=== PATIENT | female | born 1960 | race Caucasian/White ===

== ENCOUNTER 2023-10-20 10:54 | Emergency (ER) | payer OTHER, SELFPAY ==
[2023-10-20 11:02] VITALS: BP 159/100
[2023-10-20 11:08] VITALS: BMI 55.6
[2023-10-20 11:18] LABS: % Basophils 0.7 % (0-2); % Eosinophils 1.3 % (0-6); % Immature Granulocytes 0.5 % (0-0.5); % Lymphocytes 13.6 % (20.5-51.1); % Monocytes 5.9 % (1.7-9.3); Absolute Basophils 0.1 10^3/uL (0-0.2); Absolute Eosinophils 0.2 10^3/uL (0-0.7); Absolute Immature Granulocytes 0.1 10^3/uL (0-0.05); Absolute Monocytes 0.9 10^3/uL (0.1-0.6); Absolute Neutrophils 11.3 10^3/uL (1.4-6.5); Hematocrit 42.5 % (37.0-47.0); Hemoglobin 14.4 g/dL (12.0-16.0); Mean Corp Hgb Conc. 33.9 g/dL (33.0-37.0); Mean Corpuscular Hgb 28.7 pg (27.0-31.0); Mean Corpuscular Volume 84.7 fL (81.0-99.0); Mean Platelet Volume 8.9 fL (7.4-10.4); Nucleated Red Blood Cells % 0 %; Platelet Count 269 10^3/uL (130-400); Red Blood Cell Count 5.02 10^6/uL (4.20-5.40); White Blood Cell Count 14.5 10^3/uL (4.8-10.8)
[2023-10-20 11:29] LABS: ALT (SGPT) 25 U/L (0-35); AST (SGOT) 27 U/L (14-36); Albumin 4.1 g/dl (3.5-5.0); Alkaline Phosphatase 114 U/L (38-126); Blood Urea Nitrogen 16 mg/dl (7-17); Calcium 9.1 mg/dl (8.4-10.2); Carbon Dioxide 33 mmol/L (22-30); Chloride 98 mmol/L (98-107); Estimated Creatinine Clearance 109 ml/min; Glucose 120 mg/dl (70-99); Potassium 3.9 mmol/L (3.5-5.1); Sodium 140 mmol/L (135-145); Total Bilirubin 0.5 mg/dl (0.2-1.3); eGFR > 60.00
[2023-10-20 11:40] LABS: Troponin I < 0.012 ng/ml
--- NOTE | 2023-10-20 12:07 | ED.GENMED ---
History of Present Illness
General
Chief Complaint: Chest Pain
Source: patient, records and spouse
Exam Limitations: none
Time Seen by Provider: 10/20/23 11:12
Nursing documentation reviewed up to this point in time: agreed with
History of Present Illness
History of Present Illness:
63-year-old female with a past medical history of hypertension, hyperlipidemia, atrial fibrillation on Xarelto, frb-ewantdt-ruuzgrwuk diabetes who presents to the emergency department for evaluation of chest pain. Patient reports onset of symptoms
this morning shortly after she woke up around 6 AM. She says that symptoms were transient and resolved after belching but since then symptoms have been waxing and waning. 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
while at work this morning, disclosed to the physician there who referred to the ER for assessment. She was given 4 chewable baby aspirin prior to arrival, she also received 1 sublingual nitroglycerin from EMS due to severe hypertension�was
apparently hypertensive to over 200 on EMS arrival. Currently chest pain-free but she says symptoms are waxing waning�she describes vague substernal aching sensation that occasionally becomes sharper particular with inspiration. She says she has
had associated increased belching today. She has not had any nausea or vomiting. She denies any shortness of breath although again occasionally pain will become sharper with inspiration. She denies any recent illness�denies coughing, fevers,
chills. She has not noticed any swelling or pain in the legs--only describes occasional pain from arthritis in her knees which is unchanged. She says she has not had similar symptoms in the past. She does have a known history of A-fib and follows
with Dr. Terry Kingston for cardiology. Reports past surgical history of cholecystectomy.
Past History
Past History
ED Past Medical History: Arrthythmia, HTN, Hypercholesterolemia and Other (Diverticulosis, arthritis)
ED Past Surgical History: Cardiac (Ablation), Cholecystectomy and Orthopedic
Social History
Tobacco: Non-smoker
Alcohol: None
Drug: None
Personal:
Living: with family
Employment: Employed
Family History
Family History: Other (Noncontributory)
Review of Systems
Review of Systems
All Other Systems: ROS reviewed and negative except as documented in HPI and ROS
Constitutional: Denies fever or chills
Respiratory: Denies cough or trouble breathing
Cardiac: Reports chest pain; Denies palpitations
ABD/GI: Reports other (Belching); Denies abdominal pain, nausea or vomiting
: Denies flank pain
Musculoskeletal: Denies edema, neck pain or back pain
Neurological: Denies dizzy or headache
Phy Exam
Physical Exam
Physical Exam:
General: Awake, alert, oriented x3; no acute distress
Head: Normocephalic, atraumatic
Eyes: Conjunctiva normal, sclera anicteric
Throat: Airway intact, handling secretions
Neck: Trachea midline, supple without meningismus
Lungs: Clear to auscultation bilaterally, no wheezing, rales, rhonchi
Heart: Regular rate and rhythm, faint systolic murmur
Abd: Soft, non distended, nontender
Neuro: No gross deficits
Extremities: No edema in extremities, no calf tenderness, equal pulses in all extremities
Scores
Heart Failure Risk
Heart Failure Risk Score: Not Applicable
Heart Score for Chest Pain Patients
STEMI patient?: No
History: Slightly or Non-Suspicious
ECG: Normal
Age: >45 - <65 years
Risk Factors: >/= 3 Risk Factors or History of CAD
Troponin: </= Normal Limit
Heart Score for Chest Pain Patients: 3
Heart Score Risk: 2.5% MACE over next 6 weeks
PE Wells Score
Symptoms of DVT: No
No alternative diagnosis better explains the illness: No
Tachycardia with pulse > 100: No
Immobilization (>=3 days) or surgery within previous 4 weeks: No
Prior history of DVT or pulmonary embolism: No
Presence of hemoptysis: No
Presence of malignancy: No
Pulmonary Embolism Risk Score: 0
Probability of PE: Pt is low risk
Withdrawal Assessment of Alcohol
Withdrawal Assessment Completed?: Not applicable
Course
Orders/Labs/Results
Orders:
Orders
10/20/23 10:58
Electrocardiogram (*1) Urgent
Reason for Study: Chest Pain
10/20/23 10:59
EKG- Treatment ONCE
10/20/23 11:10
Complete Blood Count/With Diff Urgent
Comprehensive Metabolic Panel Urgent
Troponin I Urgent
10/20/23 11:16
CR Chest - 2 Views Urgent
Comment:
Reason For Exam: chest pain
10/20/23 12:05
D-Dimer Urgent
10/20/23 12:12
EKG [Electrocardiogram (*1)] Urgent
Reason for Study: Chest Pain
10/20/23 12:13
EKG- Treatment ONCE
10/20/23 12:18
Acetaminophen [Tylenol] 650 mg PO NOW STA
10/20/23 13:11
Troponin I Urgent
10/20/23 14:43
Mag Hydrox/Al Hydrox/Simeth [Maalox] 30 ml Phenobarb/Hyoscy/Atropine/Scop [] 10 ml Viscous Lidocaine 2% [Xylocaine Viscous Cup] 10 ml PO NOW
Pantoprazole [Protonix IV] 40 mg IV NOW STA
10/20/23 14:58
Mag Hydrox/Al Hydrox/Simeth [Maalox] 30 ml .ROUTE .STK-MED ONE
Phenobarb/Hyoscy/Atropine/Scop [] 10 ml .ROUTE .STK-MED ONE
Viscous Lidocaine 2% [Xylocaine Viscous Cup] 15 ml .ROUTE .STK-MED ONE
Abnormal Lab Results
10/20/23
11:10
WBC 14.5 H 10^3/uL
(4.8-10.8)
Abs Immat Gran (auto) 0.1 H 10^3/uL
(0-0.05)
Absolute Neuts (auto) 11.3 H 10^3/uL
(1.4-6.5)
Absolute Monos (auto) 0.9 H 10^3/uL
(0.1-0.6)
Neutrophils % 78.0 H %
(42.2-75.2)
Lymphocytes % 13.6 L %
(20.5-51.1)
Carbon Dioxide 33 H mmol/L
(22-30)
Glucose 120 H mg/dl
(70-99)
10/20/23 11:10
10/20/23 11:10
Vital Signs
Initial and Last Documented VS:
Initial Vital Signs
Pulse Resp Pulse Ox
70 20 98
10/20/23 11:00 10/20/23 11:00 10/20/23 11:00
Last Documented Vital Signs
Temp Pulse Resp BP Pulse Ox
36.8 C 67 20 177/98 94
10/20/23 11:14 10/20/23 15:30 10/20/23 15:30 10/20/23 15:00 10/20/23 15:30
MDM/Problems Addressed
Differential Diagnosis Includes:
GERD/dyspepsia, ACS, dysrhythmia/symptomatic A-fib, PE; low clinical suspicion for acute aortic syndrome despite her hypertension with waxing and waning symptoms including patient being completely asymptomatic on my assessment�in my judgment
medication for emergent angiogram at this point in time
MDM/Problems Addressed:
63-year-old female presents to the emergency room for evaluation of intermittent chest discomfort associated with increasing belching today. Hypertensive but otherwise normal vitals�she did receive sublingual nitroglycerin from EMS as well as 4
baby aspirin prior to hospital arrival. Physical exam as above. EKG shows no STEMI. Will place an IV check labs including a CBC and a CMP, lipase. Will check serial troponins. She does report the pain occasionally becomes sharp with deep
inspiration; she is on Xarelto making PE very unlikely but does have history of morbid obesity which slightly increases PE risk�will plan to check D-dimer. Check a chest x-ray. Will monitor on telemetry and reassess after the above.
Labs reviewed: CBC shows slight leukocytosis to 14.5 unclear clinical significance, CMP no clinically significant abnormalities. Troponin undetectable x 2. D-dimer negative. Chest x-ray shows no acute disease on independent review by me. Patient
treated with green grabber and Protonix here and feels symptoms have improved. 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 She has had some persistent
hypertension here�we spoke at length about monitoring at home, returning with severe hypertension and following up with PCP to discuss potential medication adjustments. Feels comfortable with this plan. All questions answered.
Chronic conditions affecting care:
Obesity, atrial fibrillation, hypertension, hyperlipidemia, diabetes
Acute Exacerbation and/or Progression of Chronic Illness:
Acutely hypertensive
Acute Exacerbation and/or Progression of Chronic Illness: HTN
*Radiology
Radiology exam reviewed: preliminary read by ED provider and radiology read reviewed
*Pulse Oximetry
Patient hypoxic: no
*EKG
Interpreted by ED Provider?: Yes
Comparison EKG: no changes
Heart Rate: 68
Rate: normal
Rhythm: sinus
Hoolehua: left axis deviation
Interval: normal interval
QRS Pattern: left vent hypertrophy
Ischemia: no ischemia
*Critical Care Note
Total Time (30-74mins, 75-104mins- exclusive of procedures): Not Applicable
Data Reviewed
Review of Other/Old Records Reveals: Labs and Records
Source: patient, records and spouse
ED Attending Note
-
Portions of this chart may have been created with voice recognition software.� Occasional wrong word or��sound alike� substitutions may have occurred due to the inherent limitations of voice recognition software.
Discharge Plan
Departure
Patient Disposition: Home (Routine Discharge)
Date of Disposition: 10/20/23
Time of Disposition: 16:13
Patient with high blood pressure during this ER visit?: Yes
Discharge Problem:
Chest pain, Hypertension
Instructions: Chest Pain DCA Follow Up, BLOOD PRESSURE
Prescriptions:
New
pantoprazole [Protonix] 40 mg tablet,delayed release (DR/EC)
40 mg PO DAILY Qty: 30 0RF
No Action
escitalopram oxalate 20 MG tablet
20 mg PO DAILY
rivaroxaban [Xarelto] 20 MG tablet
20 mg PO DAILY
sotalol 120 MG tablet
120 mg PO BID Qty: 60 11RF
lisinopril-hydrochlorothiazide 1 EACH tablet
1 ea PO BID
oxycodone-acetaminophen 5 MG/325 MG tablet
1 tab PO BIDPRN PRN (Reason: neck/back pain)
oxycodone-acetaminophen 5 MG/325 MG tablet
1 tab PO Q4HPRN PRN (Reason: Moderate pain) Qty: 12 0RF
sitagliptin phos-metformin [Janumet] 1 EACH tablet
1 ea PO DAILY
polyethylene glycol 3350 238 GM powder
238 gm PO ONCE
magnesium citrate [Citroma] 300 ML solution
300 ml PO ONCE
Referrals:
Bertha Peoples MD [Family Provider] -
Gregorio Kingston MD [Active] - Call in 1-3 days for appt
Activity Restrictions/Additional Instructions:
Thank you for visiting the Emergency Department at [facility].
1. Please schedule a follow up appointment as directed. Call first thing tomorrow morning to make an appointment.
2. If indicated, please take your medications as instructed and indicated on discharge paperwork.
3. If any of your symptoms do not improve, or persist, or become more severe within 6-12 hours, please return to the emergency department for further care.
4. Please return to the emergency department if you develop a headache, neck pain/stiffness, fever greater than 100.4F, chest pain, shortness of breath, persistent nausea, vomiting, slurred speech, difficulty walking, numbness/tingling, weakness,
signs of infection or any other symptoms that are worrisome to you.
Please call [phone] if you have any questions.
Interventions
Interventions:
*Risk Screen - Suicide Last Done: 10/20/23 11:06
*General Assessment Last Done: 10/20/23 11:06
*Neglect/Abuse Screening Last Done: 10/20/23 11:06
ED- Fall Risk Assessment Last Done: 10/20/23 12:09
*ED COVID-19 Vaccine History Last Done: 10/20/23 11:06
ED- Cardiac Assessment Last Done: 10/20/23 11:05
Discharge Date and Time
Print Language: THAI
[2023-10-20 12:18] VITALS: BP 146/70
[2023-10-20] MEDS: TYLENOL 650 MG PO (12:21)
[2023-10-20 13:00] VITALS: BP 176/85
[2023-10-20 13:26] LABS: D-Dimer < 0.27 ug/mlFEU (0.00-0.50)
[2023-10-20 13:45] LABS: Troponin I < 0.012 ng/ml
[2023-10-20 14:02] VITALS: BP 189/89
[2023-10-20 15:00] VITALS: BP 177/98
[2023-10-20] MEDS: MAALOX 50 PO (15:01)
[2023-10-20] MEDS: PROTONIX IV 40 MG IV (15:01)
[2023-10-20 15:55] VITALS: BP 174/89
== END 2023-10-20 16:48 | disposition home or self-care (01) ==
LOC: EMR 10:54
PROVIDERS: Emergency Medicine; EMERGENCY PHYSICIAN Emergency Medicine; FAMILY PHYSICIAN Family Medicine
DX: R07.89 Other chest pain (principal); I10 Essential (primary) hypertension; E78.00 Pure hypercholesterolemia, unspecified; I48.91 Unspecified atrial fibrillation; M17.0 Bilateral primary osteoarthritis of knee; E11.40 Type 2 diabetes mellitus with diabetic neuropathy, unspecified; E66.01 Morbid (severe) obesity due to excess calories; G47.30 Sleep apnea, unspecified; K57.90 Diverticulosis of intestine, part unspecified, without perforation or abscess without bleeding; F32.A Depression, unspecified; Z87.891 Personal history of nicotine dependence; Z79.01 Long term (current) use of anticoagulants; Z79.84 Long term (current) use of oral hypoglycemic drugs; Z90.49 Acquired absence of other specified parts of digestive tract
CPT/HCPCS: 99284; 96374; 71046; 80053; 84484; 85025; 85379; 93005

== ENCOUNTER → 2024-03-02 08:33 | Outpatient (REF) | payer OTHER, SELFPAY | LOC: RCS 08:33 | PROVIDERS: ATTENDING PHYSICIAN Internal Medicine Cardiovascular Disease; FAMILY PHYSICIAN Family Medicine | DX: I48.3 Typical atrial flutter (principal) | CPT/HCPCS: 93306 ==

== ENCOUNTER 2024-10-07 11:09 | Inpatient (IN) | payer OTHER, SELFPAY ==
[2024-10-07] VITALS (11 sets, daily range): BP systolic 113–148; BP diastolic 58–81; BMI 44.3; BMI 44.4
--- NOTE | 2024-10-07 08:51 | ED.GENMED ---
History of Present Illness
<Howie Salmeron PA-C - Last Filed: 10/07/24 12:34>
General
Chief Complaint: Abdominal Pain
Source: patient
Time Seen by Provider: 10/07/24 08:26
History of Present Illness
History of Present Illness:
64-year-old female with past medical history of atrial fibrillation, hypertension, hyperlipidemia, oqc-yikzvov-jkkbnytuw diabetes presenting to the emergency department for evaluation of periumbilical abdominal pain radiating to the right lower
quadrant since yesterday accompanied with nausea and vomiting last night, diminished p.o. intake to both solids and liquids and stating she has had a harder time having bowel movements as well. Patient did not attempt anything for pain prior to
arrival as she states she did not feel should be able to tolerate it. She denies any fevers, chills, rigors, urinary symptoms, chest pain, shortness of breath, back or flank pain. Patient notes a surgical history of previous cholecystectomy,
previous umbilical hernia and section. Social history noncontributory. Patient states pain is currently about a 7 out of 10 and is currently requesting something for pain as well as nausea.
Past History
<Howie Salmeron PA-C - Last Filed: 10/07/24 12:34>
Past History
ED Past Medical History: Arrthythmia, HTN, Hypercholesterolemia, NIDDM and Other (Diverticulosis, arthritis)
ED Past Surgical History: Cardiac (Ablation), Cholecystectomy and Orthopedic
Social History
Tobacco: Non-smoker
Alcohol: None
Drug: None
Personal:
Living: with family
Employment: Employed
Family History
Family History: Other (Noncontributory)
Review of Systems
<Howie Salmeron PA-C - Last Filed: 10/07/24 12:34>
Review of Systems
All Other Systems: ROS reviewed and negative except as documented in HPI and ROS
Phy Exam
<Howie Salmeron PA-C - Last Filed: 10/07/24 12:34>
Physical Exam
Physical Exam:
GENERAL: Alert , in no apparent distress but appears mildly uncomfortable
EYE: clear conjunctiva b/l
HEAD: NCAT
ENT: o/p clr, mmm.
CARDIAC: Regular rate and rhythm .
LUNGS: Clear breath sounds bilaterally, no acute respiratory distress, no wheezes/rales/rhonchi
ABDOMEN: Soft, small area of ecchymosis just proximal and lateral to the umbilicus with tenderness periumbilically and within the right lower quadrant with grimacing, no CVA tenderness, no rebound tenderness
NEUROLOGICAL: Alert and oriented
SKIN: Warm and dry, skin intact.
MUSCULOSKELETAL: No edema, well perfused.
PSYCH: Normal and appropriate interaction.
Scores
<Howie Salmeron PA-C - Last Filed: 10/07/24 12:34>
Heart Failure Risk
Heart Failure Risk Score: Not Applicable
Heart Score for Chest Pain Patients
STEMI patient?: Not applicable
Withdrawal Assessment of Alcohol
Withdrawal Assessment Completed?: Not applicable
Course
<Howie Salmeron PA-C - Last Filed: 10/07/24 12:34>
Orders/Labs/Results
Orders:
Orders
10/07/24 08:46
CT Abd/pelvis W Iv Cont Urgent
Comment:
Reason For Exam: periumbilical pain, RLQ pain, on xarelto
Morphine Sulfate 4 mg IV NOW STA
Ondansetron Injectable [Zofran] 4 mg IV NOW STA
10/07/24 09:15
Type+Screen Urgent
Complete Blood Count/With Diff Urgent
Comprehensive Metabolic Panel Urgent
Lipase Urgent
PTT Urgent
Prothrombin Time Urgent
Urinalysis Reflex To Culture Urgent
Date Specimen was Collected: 10/07/24
Time Specimen was Collected: 09:05
Urine Microscopic Reflex Cult Urgent
Urine Culture Urgent
VILMA Source: U
Specimen Description:
Date Specimen was Collected: 10/07/24
Time Specimen was Collected: 09:05
10/07/24 10:44
Piperacillin/Tazo 3.375 Gram [Zosyn] 3.375 gram in 50 ml IV NOW
10/07/24 10:51
HYDROmorphone [Dilaudid] 0.5 mg IV NOW STA
10/07/24 10:52
0.9% Sodium Chloride 1000 ml [Nss] 1,000 ml IV BOLUS
10/07/24 10:55
Admit/Transfer Patient As Directed
Co-Sign Provider:
Level of Care: Inpatient admission
Assign to:: Medical/Surgical
Physician / Group: Hospitalist
Diagnosis: Abdominal pain
Reason for Hospitalization: .
Expected length of stay greater than two midnights?: Yes
ELOS- Estimated Length of Stay in days: 3
I certify the patient meets the requirements for IP care: Yes
PRN Pain Medication Management As Directed
May give lesser potent ordered pain med per pt: Yes
preference::
Protocol:: Medication orders for pain may be administered in a
manner that supports deferring to patient preference
when the pt is:
- Requesting an ordered lesser potent pain medication.
Least to most potent pain medications are defined
as: acetaminophen < NSAID < tramadol < opioids
(morphine, oxycodone, hydromorphone).
- Requesting a lesser dose of the same medication IF
ORDERED.
- Requesting a less intrusive route of administration
if both routes are prescribed by the provider (PO <
IV).
10/07/24 10:57
Potassium Chloride [KCl] 40 meq Dextrose 5%/Water 250 ml [D5w] 250 ml IV NOW
Abnormal Lab Results
10/07/24
09:15
WBC 20.9 H 10^3/uL
(4.8-10.8)
Abs Immat Gran (auto) 0.1 H 10^3/uL
(0-0.05)
Absolute Neuts (auto) 19.0 H 10^3/uL
(1.4-6.5)
Absolute Lymphs (auto) 1.0 L 10^3/uL
(1.2-3.4)
Absolute Monos (auto) 0.8 H 10^3/uL
(0.1-0.6)
Neutrophils % 90.9 H %
(42.2-75.2)
Lymphocytes % 4.6 L %
(20.5-51.1)
PT 20.0 H Sec
(11.4-14.6)
APTT 41.1 H Sec
(23.4-35.0)
Sodium 133 L mmol/L
(135-145)
Potassium 3.4 L mmol/L
(3.5-5.1)
Chloride 94 L mmol/L
(98-107)
Glucose 130 H mg/dl
(70-99)
Urine Ketones 2+ A
(Negative)
Urine Bilirubin 1+ A
(Negative)
Leukocyte Esterase Rfl 1+ A
(Negative)
Urine Bacteria (Reflex) Moderate A
(Negative)
Urine Albumin (Reflex) 2+ A
(Neg - Trace)
10/07/24 09:15
10/07/24 09:15
Vital Signs
Initial and Last Documented VS:
Initial Vital Signs
Temp Pulse Resp BP Pulse Ox
99.6 F 92 16 148/78 95
10/07/24 07:52 10/07/24 07:52 10/07/24 07:52 10/07/24 07:52 10/07/24 07:52
Last Documented Vital Signs
Temp Pulse Resp BP Pulse Ox
99.6 F 87 20 140/78 94
10/07/24 11:14 10/07/24 11:45 10/07/24 11:45 10/07/24 11:14 10/07/24 11:45
<Gregorio Ozuna MD - Last Filed: 10/07/24 11:21>
Orders/Labs/Results
Orders:
Orders
10/07/24 08:46
CT Abd/pelvis W Iv Cont Urgent
Comment:
Reason For Exam: periumbilical pain, RLQ pain, on xarelto
Morphine Sulfate 4 mg IV NOW STA
Ondansetron Injectable [Zofran] 4 mg IV NOW STA
10/07/24 09:15
Type+Screen Urgent
Complete Blood Count/With Diff Urgent
Comprehensive Metabolic Panel Urgent
Lipase Urgent
PTT Urgent
Prothrombin Time Urgent
Urinalysis Reflex To Culture Urgent
Date Specimen was Collected: 10/07/24
Time Specimen was Collected: 09:05
Urine Microscopic Reflex Cult Urgent
Urine Culture Urgent
VILMA Source: U
Specimen Description:
Date Specimen was Collected: 10/07/24
Time Specimen was Collected: 09:05
10/07/24 10:44
Piperacillin/Tazo 3.375 Gram [Zosyn] 3.375 gram in 50 ml IV NOW
10/07/24 10:51
HYDROmorphone [Dilaudid] 0.5 mg IV NOW STA
10/07/24 10:52
0.9% Sodium Chloride 1000 ml [Nss] 1,000 ml IV BOLUS
10/07/24 10:55
Admit/Transfer Patient As Directed
Co-Sign Provider:
Level of Care: Inpatient admission
Assign to:: Medical/Surgical
Physician / Group: Hospitalist
Diagnosis: Abdominal pain
Reason for Hospitalization: .
Expected length of stay greater than two midnights?: Yes
ELOS- Estimated Length of Stay in days: 3
I certify the patient meets the requirements for IP care: Yes
PRN Pain Medication Management As Directed
May give lesser potent ordered pain med per pt: Yes
preference::
Protocol:: Medication orders for pain may be administered in a
manner that supports deferring to patient preference
when the pt is:
- Requesting an ordered lesser potent pain medication.
Least to most potent pain medications are defined
as: acetaminophen < NSAID < tramadol < opioids
(morphine, oxycodone, hydromorphone).
- Requesting a lesser dose of the same medication IF
ORDERED.
- Requesting a less intrusive route of administration
if both routes are prescribed by the provider (PO <
IV).
10/07/24 10:57
Potassium Chloride [KCl] 40 meq Dextrose 5%/Water 250 ml [D5w] 250 ml IV NOW
Abnormal Lab Results
10/07/24
09:15
WBC 20.9 H 10^3/uL
(4.8-10.8)
Abs Immat Gran (auto) 0.1 H 10^3/uL
(0-0.05)
Absolute Neuts (auto) 19.0 H 10^3/uL
(1.4-6.5)
Absolute Lymphs (auto) 1.0 L 10^3/uL
(1.2-3.4)
Absolute Monos (auto) 0.8 H 10^3/uL
(0.1-0.6)
Neutrophils % 90.9 H %
(42.2-75.2)
Lymphocytes % 4.6 L %
(20.5-51.1)
PT 20.0 H Sec
(11.4-14.6)
APTT 41.1 H Sec
(23.4-35.0)
Sodium 133 L mmol/L
(135-145)
Potassium 3.4 L mmol/L
(3.5-5.1)
Chloride 94 L mmol/L
(98-107)
Glucose 130 H mg/dl
(70-99)
Urine Ketones 2+ A
(Negative)
Urine Bilirubin 1+ A
(Negative)
Leukocyte Esterase Rfl 1+ A
(Negative)
Urine Bacteria (Reflex) Moderate A
(Negative)
Urine Albumin (Reflex) 2+ A
(Neg - Trace)
10/07/24 09:15
10/07/24 09:15
Vital Signs
Initial and Last Documented VS:
Initial Vital Signs
Temp Pulse Resp BP Pulse Ox
99.6 F 92 16 148/78 95
10/07/24 07:52 10/07/24 07:52 10/07/24 07:52 10/07/24 07:52 10/07/24 07:52
Last Documented Vital Signs
Temp Pulse Resp BP Pulse Ox
99.6 F 87 20 140/78 94
10/07/24 11:14 10/07/24 11:45 10/07/24 11:45 10/07/24 11:14 10/07/24 11:45
<Howie Salmeron PA-C - Last Filed: 10/07/24 12:34>
MDM/Problems Addressed
Differential Diagnosis Includes:
Appendicitis
Spontaneous abdominal bleeding secondary to Xarelto use
Pancreatitis
Renal/ureteral colic
Cystitis
Pyelonephritis
Diverticulitis
Colitis
Gastroenteritis
Bowel obstruction
MDM/Problems Addressed:
64-year-old female presenting to the ER for evaluation of abdominal pain, nausea and vomiting that began yesterday, spontaneous bruising periumbilically. Patient arrives hemodynamically stable but does appear uncomfortable during exam and has
clearly reproducible tenderness within the umbilicus/right lower quadrant. Will obtain stat CT. Labs ordered. Pain control with morphine and and nausea control with Zofran. Reassessment following
Chronic conditions affecting care: Arrhythmia
<Howie Salmeron PA-C - Last Filed: 10/07/24 12:34>
*Pulse Oximetry
SaO2: 95
Oxygen Mode of Delivery: Room air
Patient hypoxic: no
*Critical Care Note
Total Time (30-74mins, 75-104mins- exclusive of procedures): Not Applicable
Data Reviewed
Review of Other/Old Records Reveals: Records
<Howie Salmeron PA-C - Last Filed: 10/07/24 12:34>
Patient Management
Discussion with other providers: Hospitalist and Heater Tender
Escalation/DeEscalation of care consider admission/obs:
On reevaluation patient notes minimal improvement of her pain following the IV morphine. Will treat with additional IV Dilaudid for pain control. CT shows acute sigmoid diverticulitis with small area of microperforation. I ordered IV Zosyn and
will order IV fluids given her significant leukocytosis. I notified colorectal surgery as well as hospitalist team. Hospitalist team to admit with colorectal surgery in consult
ED Attending Note
<Howie Salmeron PA-C - Last Filed: 10/07/24 12:34>
-
Portions of this chart may have been created with voice recognition software.� Occasional wrong word or��sound alike� substitutions may have occurred due to the inherent limitations of voice recognition software.
<Gregorio Ozuna MD - Last Filed: 10/07/24 11:21>
ED Attending Note
Patient seen and examined by attending physician: Yes
I performed the substantive portion of visit, reviewed & personally made and approve the management plan that is documented in note by myself or TIMMY.: Yes
ED Attending Note:
Progressive lower abdominal pain since yesterday. Some nausea. No fever. History of diverticulitis. No trauma.
On exam patient is nontoxic. She does have increased pain with attempted lying down. She is warm and dry. She is perfusing well. Lungs are clear and equal. Heart regular rate and rhythm with mild midsystolic murmur. Abdomen is elevated BMI.
Bowel sounds present. Soft. Diffuse lower abdominal tenderness greatest in the right lower quadrant.
Significant leukocytosis. CT scan shows diverticulitis with microperforation.
Admit for IV antibiotics. NPO. Hospitalist and colorectal contacted.
Discharge Plan
Departure
Patient Disposition: Admit
Date of Disposition: 10/07/24
Time of Disposition: 10:45
Presentation/result/management discussed w/ accepting MD/DO: Hospitalist
Discharge Problem:
Diverticulitis of colon with perforation
Interventions
Interventions:
*Risk Screen - Suicide Last Done: 10/07/24 07:52
*General Assessment Last Done: 10/07/24 07:52
*Neglect/Abuse Screening Last Done: 10/07/24 09:02
*ED- Fall Risk Assessment Last Done: 10/07/24 09:02
*ED COVID-19 Vaccine History Last Done: 10/07/24 07:52
LU-Qwclto-Pguzuvqbft Assessment Last Done: 10/07/24 09:02
[2024-10-07] MEDS: ZOFRAN 4 MG IV ×2 (09:20→12:52)
[2024-10-07] MEDS: MORPHINE SULFATE 4 MG IV (09:20)
[2024-10-07 09:26] LABS: Urine Character Clear (Clear)
[2024-10-07 09:27] LABS: Hematocrit 42.0 % (37.0-47.0); Hemoglobin 14.4 g/dL (12.0-16.0); Mean Corp Hgb Conc. 34.3 g/dL (33.0-37.0); Mean Corpuscular Volume 83.5 fL (81.0-99.0); Nucleated Red Blood Cells % 0 %; Platelet Count 229 10^3/uL (130-400); Red Cell Dist. Width 13.0 % (11.5-14.5)
[2024-10-07 09:36] LABS: INR 1.68; PT 20.0 Sec (11.4-14.6)
[2024-10-07 09:37] LABS: APTT 41.1 Sec (23.4-35.0)
[2024-10-07 09:43] LABS: ALT (SGPT) 23 U/L (0-35); AST (SGOT) 19 U/L (14-36); Albumin 4.1 g/dl (3.5-5.0); Alkaline Phosphatase 115 U/L (38-126); Blood Urea Nitrogen 14 mg/dl (7-17); Calcium 9.2 mg/dl (8.4-10.2); Carbon Dioxide 28 mmol/L (22-30); Chloride 94 mmol/L (98-107); Estimated Creatinine Clearance 73 ml/min; Glucose 130 mg/dl (70-99); Lipase 26 U/L (23-300); Potassium 3.4 mmol/L (3.5-5.1); Sodium 133 mmol/L (135-145); Total Protein 7.2 g/dl (6.3-8.2); eGFR > 60.00
[2024-10-07 10:27] LABS: Urine Red Blood Cell 0-2 /HPF (0-2); Urine Squamous Cell >30 /LPF (Few)
--- NOTE | 2024-10-07 10:54 | HPS.HSE ---
Family Physician
-
Family Physician: Bertha Peoples
Chief Complaint
-
Right lower abdominal pain
History of Present Illness
64 years old female presented with abdominal pain. She reported nausea. No fever or chills. In the ER, she had leukocytosis. Scan of the abdomen showed sigmoid diverticulitis with evidence of microperforation. Patient reported similar diagnosis
more than 10 years ago. She needed hospitalization at the time. Patient reported that pain medication in the ER did not help.
Medical History
Past Medical History
Past Medical History: Reports Other (Atrial fibrillation, hypertension, hyperlipidemia, diabetes, depression)
Past Surgical History: Reports Other (No recent major surgery)
Social History
Tobacco: Non-smoker
Alcohol: None
Drug: None
Personal:
Living: With Family
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
Family History
Family History: Not pertinent
Allergies / Home Medications
Allergies reflects when Allergies were last updated in [facility].
Home Medications with original date entered in [facility]
Allergy/Medication List:
Allergies
Allergy/AdvReac Type Severity Reaction Status Date / Time
No Known Allergies Allergy Verified 10/07/24 07:55
Home Medications
rivaroxaban 20 mg tablet (Xarelto) 20 mg PO QPM 01/01/18
sotalol 120 mg tablet 120 mg PO BID ##60 01/04/18
pantoprazole 40 mg tablet,delayed release (Protonix) 40 mg PO DAILY #30 tabs 10/20/23
bupropion HCl 300 mg 24 hr tablet, extended release (Wellbutrin XL) 300 mg PO DAILY 10/07/24
cholecalciferol (vitamin D3) 25 mcg (1,000 unit) tablet (Vitamin D3) 25 mcg PO DAILY 10/07/24
lisinopril 20 mg-hydrochlorothiazide 12.5 mg tablet 1 tab PO BID 10/07/24
magnesium citrate 150 ml PO DAILYPRN PRN CONSTIPATION 10/07/24
oxycodone-acetaminophen 5 mg-325 mg tablet 1 tab PO Q8HPRN PRN SEVERE PAINS 10/07/24
potassium chloride 10 mEq capsule,extended release 10 meq PO BID 10/07/24
rosuvastatin 10 mg tablet (Crestor) 10 mg PO QPM 10/07/24
sodium phosphates 19 gram-7 gram/118 mL enema (Fleet Enema) 118 ml DE DAILYPRN PRN CONSTIPATION 10/07/24
tirzepatide 15 mg/0.5 mL subcutaneous pen injector (Mounjaro) 15 mg SC MO 10/07/24
trazodone 50 mg tablet 50 - 100 mg PO HSPRN PRN SLEEP 10/07/24
venlafaxine 37.5 mg capsule,extended release 24 hr (Effexor XR) 37.5 mg PO DAILY 10/07/24
venlafaxine 75 mg capsule,extended release 24 hr (Effexor XR) 75 mg PO DAILY 10/07/24
Review of Systems
-
History Source: Patient
A 12 point ROS was completed and negative except as noted: Yes
Constitutional: Denies Fever or Chills
EENT: Denies Sore Throat
Respiratory: Denies Cough
Cardiac: Denies Chest Pain
Abdomen/GI: Reports Abdominal Pain and Nausea
: Denies Dysuria
Musculoskeletal: Denies Joint Pain or Edema
Neurological: Denies Numbness
Endocrine: Denies Temp Intolerance
Hematologic/Lymphatic: Denies Bruising
Psych: Denies Panic Disorder
Physical Exam
Vital Signs
Vital Signs
Temp Pulse Resp BP Pulse Ox
99.6 F 89 18 144/76 97
10/07/24 07:52 10/07/24 10:30 10/07/24 10:30 10/07/24 09:00 10/07/24 10:30
Physical Exam
General: Well Nourished, No Apparent Distress and Pain (Lower abdominal pain)
HEENT: Moist mucous membranes and Ears Appear Normal
Cardiac: S1/S2 and Regular Rhythm
GI: Soft and Tender
Genito-urinary: No Malhotra
Musculoskeletal: No Clubbing, No Cyanosis and No Edema
Skin: No Jaundice
Neuro: AO x 3
Psych: Calm and Intact Judgment/Insight
Laboratory Results
-
10/07/24 09:15
10/07/24 09:15
Laboratory Results
PT 20.0 Sec (11.4-14.6) H 10/07/24 09:15
INR 1.68 10/07/24 09:15
APTT 41.1 Sec (23.4-35.0) H 10/07/24 09:15
Total Bilirubin 1.0 mg/dl (0.2-1.3) 10/07/24 09:15
AST 19 U/L (14-36) 10/07/24 09:15
ALT 23 U/L (0-35) 10/07/24 09:15
Alkaline Phosphatase 115 U/L (38-126) 10/07/24 09:15
Lipase 26 U/L (23-300) 10/07/24 09:15
Impression/Plan
-
64 years old female presented with lower abdominal pain
#Acute sigmoid diverticulitis with evidence of microperforation
Patient has criteria of leukocytosis but no fever, she does not look toxic appearing
Admit the patient to the hospital
Will start bowel rest and IV fluid
IV PPI
IV pain medication and antiemetic
IV Zosyn
Will do blood culture
Will consult colorectal, appreciate input
# History of paroxysmal atrial fibrillation, currently in sinus rhythm
Continue with sotalol
Will continue with Xarelto but will discuss with surgery first if needs to be held
# Essential hypertension
#History of depression,
Patient follows with psychiatrist and she reviewed her medications doses with us.
# Diabetes, will hold metformin continue with insulin sliding scale
# Obesity, BMI 44, currently or Mounjaro
# Hyponatremia
#Hypokalemia
Replace
#DVT prophylaxis
Total time spent to see the patient, examine the patient, review data and lab results, discuss treatment plan with patient, ER doctor, nursing staff around 75 minutes
--- NOTE | 2024-10-07 10:58 | CON.CRS ---
Consultation
-
Date/Time Consultation Requested: 10:45
Date/Time Consultation Performed: 11:00
Requesting Provider: Howie Salmeron
Performing Provider: Cisco Perez
Reason for Consultation: Acute diverticulitis
Medical History
-
History of Present Illness:
64 yo F with PMH of Afib/Aflutter s/p ablation (2018) on Xarelto, HTN, HLD, NIDDM, morbid obesity, suspected QUIQUE, diverticulitis, lap cholecystectomy, open UHR for incarcerated hernia, x3 who presented to ED with abdominal pain x1 day and
found on CT to have evidence of acute diverticulitis. CRS consulted for further management recommendations.
She reports 1 day of symptoms which first started as acute onset lower abdominal cramping pain that progressed over the day. She reports eventual nausea and vomiting. She endorses feeling 'hot' without chills. She denies chest pain, shortness of
breath, diarrhea, hematochezia or melena. She does report chronic constipation for which she is not on a consistent bowel regimen but does take soluble fiber occasionally. She reports a history of diverticulitis, with one admission ten years ago for
similar symptoms and multiple other episodes of similar pain which were self limited.
Her last colonoscopy was a few weeks ago ([facility]) and was reportedly normal. Prior to that, she had a colonoscopy 03/2021 (Dr. Bradford) demonstrating scattered diverticula throughout colon, internal hemorrhoids, cecal polyp (path showing
hyperplastic changes). Recommended interval 3 years due to fair prep. She denies personal or family history of CRC or IBD.
Currently, she endorses mild lower abdominal pain but denies nausea, fevers or chills. She last took her Xarelto yesterday evening.
On exam, she is non-toxic appearing. Her vitals are stable and she is afebrile. Her abdomen is obese, but soft, moderately distended, with has significant tenderness in the upper abdomen, mostly in the epigastrium and RUQ with associated voluntary
guarding throughout, no rebound. She has multiple scars, periumbilical and several ports.
In the ED, her labs were notable for WBC 20.9, Hgb 14.4, PLT 229, Cr 0.9, Na 133, K 3.4, BG 130. A CT A/P showed 'findings most suspicious for an acute sigmoid diverticulitis. A few tiny foci of extraluminal free air in the adjacent soft tissues
raise concern for microperforation.' She was started on zosyn and admitted to hospitalist service.
Past Medical History
Past Medical History: Arrhythmias, HTN, Hypercholesterolemia, NIDDM and Other (Afib/Aflutter s/p ablation (2018), morbid obesity, suspected QUIQUE, diverticulitis)
Past Surgical History: Cholecystectomy, (x3) and Hernia Repair (incarcerated UHR ([facility]))
Social History
Tobacco: Non-Smoker
Alcohol: None
Drug: None
Personal:
Living: With Family
Employment: Not Employed
Family History
Family History: Reviewed & Not Pertinent
Allergies / Home Medications
Allergy/AdvReac Type Severity Reaction Status Date / Time
No Known Allergies Allergy Verified 10/07/24 07:55
�Medication �Instructions �Recorded �Confirmed �Type
escitalopram oxalate 20 mg tablet 20 mg PO DAILY 01/01/18 04/03/21 History
rivaroxaban 20 mg tablet (Xarelto) 20 mg PO DAILY 01/01/18 04/03/21 History
sotalol 120 mg tablet 120 mg PO BID ##60 01/04/18 04/03/21 Rx
lisinopril 20 1 ea PO BID 08/21/19 04/03/21 History
mg-hydrochlorothiazide 12.5 mg
tablet
sitagliptin phosphate 50 1 ea PO DAILY 04/03/21 04/03/21 History
mg-metformin 1,000 mg tablet
(Janumet)
pantoprazole 40 mg tablet,delayed 40 mg PO DAILY #30 tabs 10/20/23 Rx
release (Protonix)
Review of Systems
-
History Source: Patient
All other systems: Negative unless noted (See HPI)
Constitutional: Weight Loss (Intentional) and Other (Feeling hot)
EENT: No Symptoms
Respiratory: No Symptoms
Cardiac: No Symptoms
Abdomen/GI: Abdominal Pain and Other (See HPI)
: No Symptoms
Musculoskeletal: No Symptoms
Skin: No Symptoms
Neurological: No Symptoms
Endocrine: No Symptoms
Hematologic/Lymphatic: No Symptoms
A 10 point review of systems was completed, and was negative except as per HPI.
Physical Exam
Vital Signs
Temp 99.6 F 10/07/24 07:52
Pulse 89 10/07/24 10:30
Resp Rate 18 10/07/24 10:30
Blood pressure 144/76 10/07/24 09:00
SaO2 97 10/07/24 10:30
10/06/24 10/07/24 10/08/24
06:59 06:59 06:59
Actual Weight 106.2 kg
Body Mass Index (BMI) 44.3
Lab Results / Allergies
10/07/24 09:15
10/07/24 09:15
WBC 20.9 10^3/uL (4.8-10.8) H 10/07/24 09:15
Hgb 14.4 g/dL (12.0-16.0) 10/07/24 09:15
Hct 42.0 % (37.0-47.0) 10/07/24 09:15
Plt Count 229 10^3/uL (130-400) 10/07/24 09:15
Abs Immat Gran (auto) 0.1 10^3/uL (0-0.05) H 10/07/24 09:15
Neutrophils % 90.9 % (42.2-75.2) H 10/07/24 09:15
Allergy/AdvReac Type Severity Reaction Status Date / Time
No Known Allergies Allergy Verified 10/07/24 07:55
Physical Exam
General: Well Developed, Well Nourished, No Apparent Distress and Comfortable
HEENT: Normocephalic and Atraumatic
Respiratory: Non Labored Respirations
Cardiac: Regular Rhythm
Breast: Deferred by me
GI: Soft, Tender and Distended
Rectal: Deferred by Provider
Musculoskeletal: No Edema
Skin: Warm and Dry
Neuro: Awake, Alert, Oriented and AO x 3
Hematologic/Lymphatic: No Lymphadenopathy
Psych: Calm
Data Reviewed
-
CT Scan: Image Personally Visualized and interpreted and Report Reviewed by me
Labs: Labs Reviewed by me
Old Records: Reviewed
Assessment / Plan
-
64 yo F with PMH of Afib/Aflutter s/p ablation (2018) on Xarelto, HTN, HLD, NIDDM, morbid obesity, suspected QUIQUE, diverticulitis, lap cholecystectomy, open UHR for incarcerated hernia (remote, OSH), x3 who presented to ED with abdominal
pain x1 day and found on CT to have evidence of acute diverticulitis. CRS consulted for further management recommendations. Afebrile and VS appropriate. Exam notable for obese, but soft abdomen, moderately distended, with significant tenderness in
the upper abdomen, mostly in the epigastrium and RUQ with associated voluntary guarding throughout, no rebound. Labs notable for WBC 21, Cr wnl, hypokalemia, BG 130. CT with findings most suspicious for acute sigmoid diverticulitis with few tiny
foci of extraluminal free air in the adjacent soft tissues raise concern for microperforation.
Given that she is non-toxic appearing, with appropriate vitals and without signs of free perforation on exam or imaging, appropriate to manage her with antibiotics and serial abdominal exams. If her exam worsens or she becomes more toxic, can
reassess need for acute surgical intervention. In the meantime, she should be NPO (with meds) and continued on antibiotics, fluids and analgesia PRN. Please hold her future doses of Xarelto until at least tomorrow following re-evaluation.
Plan:
- No acute surgical intervention
- Agree with inpatient admission
- NPO, mIVF
- Serial abdominal exams, monitor for peritonitis
- Hold Xarelto for now
- Trend fever curve, WBC
- Continue zosyn
- Colorectal surgery will continue to follow. Please reach out to provider cnc applications engineer with any questions or concerns.
- Plan not finalized until attending attestation.
[2024-10-07] MEDS: DILAUDID 0.5 MG IV (11:11)
[2024-10-07] MEDS: ZOSYN 50 IV ×3 (11:11→23:56)
[2024-10-07] MEDS: NSS 1000 IV (11:12)
[2024-10-07] MEDS: KCL 270 MEQ IV (12:33)
--- NOTE | 2024-10-07 12:39 | CM ---
CM reviewed chart and met with pt and her bedside in ED. Lives with in 2 story home, [address], has 2 first floor full BA, BR on second floor.
Independent in ADLs, personal care and ambulation at baseline. No assistive devices, still driving
Confirms prescription coverage. No hx VN or SNF.
PCP: Bertha Peoples
Pharmacy: [facility]
CM will continue to follow for any discharge planning needs.
[2024-10-07] MEDS: DILAUDID 1 MG IV ×2 (12:52→19:46)
[2024-10-07] MEDS: NSS 500 IV (17:14)
[2024-10-07 17:18] LABS: Glucose - Point of Care 109 mg/dl (70-99)
[2024-10-07] MEDS: XARELTO 20 MG PO (17:31)
[2024-10-07] MEDS: CRESTOR 10 MG PO (17:32)
[2024-10-07] MEDS: ORETIC 12.5 MG PO (19:45)
[2024-10-07] MEDS: BETAPACE 120 MG PO (19:45)
[2024-10-07] MEDS: ZESTRIL 20 MG PO (19:46)
[2024-10-07] MEDS: DESYREL 50 MG PO (22:02)
[2024-10-07 23:30] LABS: Glucose - Point of Care 88 mg/dl (70-99)
[2024-10-08] MEDS: NSS IV (01:10)
[2024-10-08 03:29] VITALS: BP 130/65
[2024-10-08] MEDS: ZOSYN 50 IV ×4 (05:14→23:15)
[2024-10-08] MEDS: DILAUDID 1 MG IV ×5 (05:20→21:14)
[2024-10-08 06:56] LABS: Glucose - Point of Care 93 mg/dl (70-99)
[2024-10-08 07:18] VITALS: BP 122/75
[2024-10-08] MEDS: ZESTRIL 20 MG PO ×2 (08:26→20:21)
[2024-10-08] MEDS: ORETIC 12.5 MG PO ×2 (08:27→20:21)
[2024-10-08] MEDS: WELLBUTRIN XL (24 hour extended release) 300 MG PO (08:27)
[2024-10-08] MEDS: PROTONIX 40 MG PO (08:27)
[2024-10-08] MEDS: BETAPACE 120 MG PO ×2 (08:27→20:21)
[2024-10-08] MEDS: KCL 10 MEQ PO ×2 (08:27→20:21)
[2024-10-08] MEDS: EFFEXOR XR 75 MG PO (08:27)
[2024-10-08] MEDS: EFFEXOR XR 37.5 MG PO (08:27)
[2024-10-08 09:17] LABS: Hematocrit 38.0 % (37.0-47.0); Hemoglobin 12.7 g/dL (12.0-16.0); Mean Corp Hgb Conc. 33.4 g/dL (33.0-37.0); Mean Corpuscular Volume 86.0 fL (81.0-99.0); Red Cell Dist. Width 13.0 % (11.5-14.5)
[2024-10-08 09:31] LABS: Blood Urea Nitrogen 14 mg/dl (7-17); Calcium 9.1 mg/dl (8.4-10.2); Carbon Dioxide 31 mmol/L (22-30); Chloride 100 mmol/L (98-107); Estimated Creatinine Clearance 73 ml/min; Glucose 87 mg/dl (70-99); Potassium 3.8 mmol/L (3.5-5.1); Sodium 137 mmol/L (135-145); eGFR > 60.00
[2024-10-08 09:43] LABS: Platelet Count 170 10^3/uL (130-400)
--- NOTE | 2024-10-08 10:05 | W.PN.HOSP.TC ---
Today's Communication/Plan
-
Holding Xarelto per surgery note
c/w IV Zosyn
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
Assessment / Plan
Assessment / Plan
Physical Exam
General: Well Nourished, No Apparent Distress and Pain (Lower abdominal pain)
HEENT: Moist mucous membranes and Ears Appear Normal
Cardiac: S1/S2 and Regular Rhythm
GI: Soft and Tender
Genito-urinary: No Malhotra
Musculoskeletal: No Clubbing, No Cyanosis and No Edema
Skin: No Jaundice
Neuro: AO x 3
Psych: Calm and Intact Judgment/Insight
A/P:
64 years old female presented with lower abdominal pain
#Acute sigmoid diverticulitis with evidence of microperforation
Localized infection, not sepsis
c/w Mild IVF
Bowel rest
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
PPI
IV pain medication and antiemetic
IV Zosyn
f/w blood culture
Consulted colorectal, appreciate input
# History of paroxysmal atrial fibrillation, currently in sinus rhythm
Continue with sotalol
Holding Xarelto per surgery note.
# Essential hypertension
#History of depression,
Patient follows with psychiatrist and she reviewed her medications doses with us.
# Diabetes, will hold metformin continue with insulin sliding scale
# Obesity, BMI 44, currently or Mounjaro
# Hyponatremia, resolved
#Hypokalemia
Replaced
#DVT prophylaxis, add SQ heparin while Xarelto on hold
Total time spent to see the patient, examine the patient, review data and lab results, discuss treatment plan with patient, nursing staff around 55 minutes
Anticipated Discharge: > 48 hours
Subjective/Interval History
-
Date of Service: October 08, 2024
Less pain in lower abdomen
No nausea
Objective Data
-
Labs:
Laboratory Results
10/08/24
08:24
WBC 11.7 H
Hgb 12.7
Hct 38.0
Plt Count 170 D
Sodium 137
Potassium 3.8
Chloride 100
Carbon Dioxide 31 H
BUN 14
Creatinine 0.9
Glucose 87
Calcium 9.1
Vital Signs:
Vital Signs
Temp Pulse Resp BP Pulse Ox
98.6 F 83 16 122/75 95
10/08/24 07:18 10/08/24 08:26 10/08/24 07:18 10/08/24 08:26 10/08/24 07:18
I&O
10/07/24 10/08/24 10/09/24
06:59 06:59 06:59
Intake Total 840 / 840
Balance 840 / 840
[2024-10-08 10:35] LABS: Glycohemoglobin (HgbA1c) 5.4 % (4.0-5.6)
[2024-10-08 12:00] VITALS: BP 123/64
[2024-10-08] MEDS: NSS 1000 IV (12:16)
[2024-10-08 12:19] LABS: Glucose - Point of Care 89 mg/dl (70-99)
--- NOTE | 2024-10-08 14:53 | W.PN.GS2 ---
Addendum entered and electronically signed by Jessee Salguero MD 10/08/24 15:04:
I saw and examined the patient.
The CANE LOADER's note was reviewed and I agree with the note.
Comment: Pain controlled, denies n/v. Remains ttp mainly to RLQ, 99.2F Tmax o/n, WBC trending down. Cont IV abx, start cld. Hold xarelto for now. OK for lovenox ppx
Original Note:
Today's Communication / Plan
-
clears as tolerated
Assessment / Plan
-
64 yo female with h/o AF on Xarelto (last given on 10/07/24) who presents with recurrent diverticulitis with CT demonstrating acute sigmoid diverticulitis with microperforation without abscess.
Leukocytosis improving on IV abx
Pain a little better although still present
No N/V
Plan:
Ok for clear liquids from surgical standpoint
Continue IV Zosyn
Trend labs/exams
Gentle IVF
Analgesics prn
SCDs and Heparin sQ for VTE ppx
Hold PO AC in case operative intervention warranted, although none planned currently as she is improving with medical measures
Subjective Data
-
Date of Service: October 08, 2024
Pt seen and examined at bedside with Dr. Salguero. Denies n/v. Pain overall better but still present especially with movement.
Objective Data
-
Intake and Output
10/07/24 10/08/24 10/09/24
06:59 06:59 06:59
Intake Total 840 / 840
Balance 840 / 840
Intake:
Oral fluids 240 / 240
IV fluids (Total) 500 / 500
IV piggybacks 100 / 100
Other:
Number of approximated MODERATE 2
amounts of urine
Vital Signs
Temp Pulse Resp BP Pulse Ox
98.3 F 83 18 123/64 94
10/08/24 12:00 10/08/24 12:00 10/08/24 12:00 10/08/24 12:00 10/08/24 12:00
Lab Results
10/08/24 08:24
10/08/24 08:24
Calcium 9.1 mg/dl (8.4-10.2) 10/08/24 08:24
Total Bilirubin 1.0 mg/dl (0.2-1.3) 10/07/24 09:15
AST 19 U/L (14-36) 10/07/24 09:15
ALT 23 U/L (0-35) 10/07/24 09:15
Alkaline Phosphatase 115 U/L (38-126) 10/07/24 09:15
Total Protein 7.2 g/dl (6.3-8.2) 10/07/24 09:15
Albumin 4.1 g/dl (3.5-5.0) 10/07/24 09:15
Physical Exam
-
NAD
ABD soft, tender to RLQ across towards umbilicus (mod), ND
[2024-10-08 16:00] VITALS: BP 105/64
[2024-10-08 17:36] LABS: Glucose - Point of Care 82 mg/dl (70-99)
[2024-10-08] MEDS: CRESTOR 10 MG PO (18:13)
[2024-10-08] MEDS: HEPARIN 5000 UNITS SC (20:19)
[2024-10-08 20:30] VITALS: BP 129/71
[2024-10-08] MEDS: TIGAN 200 MG IM (20:31)
[2024-10-08] MEDS: DESYREL 50 MG PO (21:51)
[2024-10-08 23:54] VITALS: BP 135/78
[2024-10-09] MEDS: DILAUDID 1 MG IV ×4 (00:37→12:16)
[2024-10-09 00:42] LABS: Glucose - Point of Care 68 mg/dl (70-99)
[2024-10-09] MEDS: DEXTROSE 50% SYRINGE 12.5 GRAMS IV ×2 (00:44→05:23)
[2024-10-09 01:07] LABS: Glucose - Point of Care 125 mg/dl (70-99)
[2024-10-09] MEDS: NSS 1000 IV ×2 (02:12→17:25)
[2024-10-09 03:00] LABS: Glucose - Point of Care 75 mg/dl (70-99)
[2024-10-09 03:27] VITALS: BP 102/61
[2024-10-09] MEDS: ZOSYN 50 IV ×3 (05:00→17:25)
[2024-10-09 05:06] LABS: Glucose - Point of Care 69 mg/dl (70-99)
[2024-10-09 05:22] LABS: Glucose - Point of Care 69 mg/dl (70-99)
[2024-10-09 05:48] LABS: Glucose - Point of Care 111 mg/dl (70-99)
[2024-10-09 07:20] VITALS: BP 118/80
[2024-10-09 07:49] LABS: Glucose - Point of Care 77 mg/dl (70-99)
[2024-10-09] MEDS: WELLBUTRIN XL (24 hour extended release) 300 MG PO (08:56)
[2024-10-09] MEDS: ORETIC 12.5 MG PO ×2 (08:56→20:05)
[2024-10-09] MEDS: BETAPACE 120 MG PO ×2 (08:57→20:06)
[2024-10-09] MEDS: ZESTRIL 20 MG PO ×2 (08:57→20:05)
[2024-10-09] MEDS: PROTONIX 40 MG PO (08:57)
[2024-10-09] MEDS: EFFEXOR XR 75 MG PO (08:57)
[2024-10-09] MEDS: KCL 10 MEQ PO ×2 (08:57→20:05)
[2024-10-09] MEDS: EFFEXOR XR 37.5 MG PO (08:57)
[2024-10-09] MEDS: HEPARIN 5000 UNITS SC ×2 (08:58→20:07)
[2024-10-09 09:20] LABS: Hematocrit 36.6 % (37.0-47.0); Hemoglobin 12.2 g/dL (12.0-16.0); Mean Corp Hgb Conc. 33.3 g/dL (33.0-37.0); Mean Corpuscular Volume 84.9 fL (81.0-99.0); Platelet Count 186 10^3/uL (130-400); Red Cell Dist. Width 13.0 % (11.5-14.5)
[2024-10-09 09:34] LABS: Glucose - Point of Care 76 mg/dl (70-99)
--- NOTE | 2024-10-09 09:38 | W.PN.HOSP.TC ---
Today's Communication/Plan
-
Xarelto on hold per surgery
Clear liquid diet if ok with surgery to help with hypoglycemia
c/w IV Zosyn
Might consider repeat CT in am if needed
Encourage ambulation
Assessment / Plan
Assessment / Plan
Physical Exam
General: Well Nourished, No Apparent Distress and Pain (Lower abdominal pain)
HEENT: Moist mucous membranes and Ears Appear Normal
Cardiac: S1/S2 and Regular Rhythm
GI: Soft and Tender
Genito-urinary: No Malhotra
Musculoskeletal: No Clubbing, No Cyanosis and No Edema
Skin: No Jaundice
Neuro: AO x 3
Psych: Calm and Intact Judgment/Insight
A/P:
64 years old female presented with lower abdominal pain
#Acute sigmoid diverticulitis with evidence of microperforation
Localized infection, not sepsis
c/w Mild IVF
Noted improvement on clinical exam, WBC back to normal
PPI
IV pain medication and antiemetic
IV Zosyn
Negative urine culture
Consulted colorectal, appreciate input
# History of paroxysmal atrial fibrillation, currently in sinus rhythm
Continue with sotalol
Holding Xarelto per surgery note.
# Essential hypertension
#History of depression,
Patient follows with psychiatrist and she reviewed her medications doses with us.
# Diabetes, will hold metformin continue with insulin sliding scale
Currently NPO, noted hypoglycemia, ok for clear liquid diet if surgery allows
# Obesity, BMI 44, currently or Mounjaro
# Hyponatremia, resolved
#Hypokalemia
Replaced
#DVT prophylaxis, add SQ heparin while Xarelto on hold
Total time spent to see the patient, examine the patient, review data and lab results, discuss treatment plan with patient, nursing staff around 55 minutes
Anticipated Discharge: 24 - 48 hours
Subjective/Interval History
-
Date of Service: October 09, 2024
Objective Data
-
Labs:
Laboratory Results
10/09/24
08:42
WBC 8.7
Hgb 12.2
Hct 36.6 L
Plt Count 186
Sodium Pending
Potassium Pending
Chloride Pending
Carbon Dioxide Pending
BUN Pending
Creatinine Pending
Glucose Pending
Calcium Pending
Vital Signs:
Vital Signs
Temp Pulse Resp BP Pulse Ox
97.8 F 72 18 118/80 93
10/09/24 07:20 10/09/24 08:57 10/09/24 07:20 10/09/24 08:57 10/09/24 07:20
I&O
10/08/24 10/09/24 10/10/24
06:59 06:59 06:59
Intake Total 840 / 840 1585 / 1585
Balance 840 / 840 1585 / 1585
[2024-10-09 09:42] LABS: Blood Urea Nitrogen 12 mg/dl (7-17); Calcium 9.1 mg/dl (8.4-10.2); Carbon Dioxide 32 mmol/L (22-30); Chloride 102 mmol/L (98-107); Estimated Creatinine Clearance 66 ml/min; Glucose 70 mg/dl (70-99); Potassium 4.0 mmol/L (3.5-5.1); Sodium 138 mmol/L (135-145); eGFR > 60.00
[2024-10-09 11:24] VITALS: BP 145/84
[2024-10-09 11:51] LABS: Glucose - Point of Care 75 mg/dl (70-99)
--- NOTE | 2024-10-09 12:57 | W.PN.GS2 ---
Today's Communication / Plan
-
Sips of clears
ABX
Assessment / Plan
-
64 yo female with h/o AF on Xarelto (last given on 10/07/24) who presents with recurrent diverticulitis with CT demonstrating acute sigmoid diverticulitis with microperforation without abscess.
Leukocytosis now resolved
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
Worsening pain with trial of clears yesterday
No N/V
Plan:
NPO with sips of clears, if continues to improve anticipate trial of clears again tomorrow
Continue IV Zosyn
Trend labs/exams
Gentle IVF
Analgesics prn
SCDs and Heparin sQ for VTE ppx
Hold PO AC in case operative intervention warranted, although none planned currently as she is improving with medical measures
Subjective Data
-
Date of Service: October 09, 2024
Pt seen and examined at bedside with Dr. Salguero. OOB to chair. Feeling more comfortable but still with RLQ pain. Denies n/v. Pain worsened with trial of clears yesterday.
Objective Data
-
Intake and Output
10/08/24 10/09/24 10/10/24
06:59 06:59 06:59
Intake Total 840 / 840 1585 / 1585
Balance 840 / 840 1585 / 1585
Intake:
Oral fluids 240 / 240 660 / 660
IV fluids (Total) 500 / 500 825 / 825
IV piggybacks 100 / 100 100 / 100
Other:
Number of approximated MODERATE 2 2
amounts of urine
Vital Signs
Temp Pulse Resp BP Pulse Ox
97.7 F 72 16 145/84 95
10/09/24 11:24 10/09/24 11:24 10/09/24 11:24 10/09/24 11:24 10/09/24 11:24
Lab Results
10/09/24 08:42
10/09/24 08:42
Calcium 9.1 mg/dl (8.4-10.2) 10/09/24 08:42
Total Bilirubin 1.0 mg/dl (0.2-1.3) 10/07/24 09:15
AST 19 U/L (14-36) 10/07/24 09:15
ALT 23 U/L (0-35) 10/07/24 09:15
Alkaline Phosphatase 115 U/L (38-126) 10/07/24 09:15
Total Protein 7.2 g/dl (6.3-8.2) 10/07/24 09:15
Albumin 4.1 g/dl (3.5-5.0) 10/07/24 09:15
Physical Exam
-
NAD
ABD soft, tender to RLQ across towards umbilicus (mod), voluntary guarding, ND
[2024-10-09 14:11] LABS: C-Reactive Protein 263.20 mg/L (0.0-10.00)
[2024-10-09 15:40] VITALS: BP 134/71
[2024-10-09] MEDS: CRESTOR 10 MG PO (17:25)
[2024-10-09 17:30] LABS: Glucose - Point of Care 127 mg/dl (70-99)
[2024-10-09 19:58] VITALS: BP 150/80
[2024-10-09] MEDS: TYLENOL 1000 MG PO (20:11)
[2024-10-09 21:03] LABS: Glucose - Point of Care 89 mg/dl (70-99)
[2024-10-09] MEDS: DESYREL 50 MG PO (23:27)
[2024-10-09 23:53] VITALS: BP 145/77
[2024-10-10] MEDS: ZOSYN 50 IV ×4 (00:24→17:55)
[2024-10-10 00:28] LABS: Glucose - Point of Care 77 mg/dl (70-99)
[2024-10-10 03:00] VITALS: BP 151/77
[2024-10-10 03:09] LABS: Glucose - Point of Care 68 mg/dl (70-99)
[2024-10-10 03:27] LABS: Glucose - Point of Care 73 mg/dl (70-99)
[2024-10-10] MEDS: NSS 1000 IV (05:58)
[2024-10-10 06:01] LABS: Glucose - Point of Care 88 mg/dl (70-99)
[2024-10-10 07:25] VITALS: BP 168/96
[2024-10-10 07:31] LABS: Hematocrit 36.1 % (37.0-47.0); Hemoglobin 12.2 g/dL (12.0-16.0); Mean Corp Hgb Conc. 33.8 g/dL (33.0-37.0); Mean Corpuscular Volume 84.9 fL (81.0-99.0); Platelet Count 221 10^3/uL (130-400); Red Cell Dist. Width 12.8 % (11.5-14.5)
[2024-10-10 08:05] LABS: Glucose - Point of Care 80 mg/dl (70-99)
[2024-10-10 08:22] LABS: Blood Urea Nitrogen 7 mg/dl (7-17); Calcium 8.9 mg/dl (8.4-10.2); Carbon Dioxide 32 mmol/L (22-30); Chloride 101 mmol/L (98-107); Estimated Creatinine Clearance 82 ml/min; Glucose 84 mg/dl (70-99); Potassium 3.4 mmol/L (3.5-5.1); Sodium 141 mmol/L (135-145); eGFR > 60.00
[2024-10-10] MEDS: OMNIPAQUE 50 ML PO (08:27)
[2024-10-10] MEDS: EFFEXOR XR 75 MG PO (08:27)
[2024-10-10] MEDS: KCL 10 MEQ PO ×2 (08:27→21:44)
[2024-10-10] MEDS: ZESTRIL 20 MG PO ×2 (08:27→21:16)
[2024-10-10] MEDS: BETAPACE 120 MG PO ×2 (08:27→21:41)
[2024-10-10] MEDS: EFFEXOR XR 37.5 MG PO (08:28)
[2024-10-10] MEDS: ORETIC 12.5 MG PO ×2 (08:28→21:16)
[2024-10-10] MEDS: WELLBUTRIN XL (24 hour extended release) 300 MG PO (08:28)
[2024-10-10] MEDS: HEPARIN 5000 UNITS SC ×2 (08:29→21:42)
[2024-10-10] MEDS: PROTONIX 40 MG PO (08:34)
[2024-10-10 08:38] LABS: C-Reactive Protein 196.10 mg/L (0.0-10.00)
--- NOTE | 2024-10-10 10:28 | W.PN.CRS1 ---
Today's Communication / Plan
-
Clears
Milk of magnesia
Hold Xarelto
Assessment/Plan
-
64 yo female with h/o AF on Xarelto (last given on 10/07/24) who presents with recurrent diverticulitis with CT demonstrating acute sigmoid diverticulitis with microperforation without abscess.
WBC 7.7. Vitals normal.
Plan:
-Advance diet to clears
-Continue IV Zosyn
- Milk of magnesia x 1 given constipation for the past 6 days
-Trend labs/exams
-Gentle IVF
-Analgesics prn
-SCDs and Heparin sQ for VTE ppx
-Hold PO AC in case operative intervention warranted, although none planned currently as she is improving with medical measures
Subjective Data
Subjective Data
Date of Service: October 10, 2024
Patient states she feels a lot better than when she came in. She has decreased pain. She has flatus. Denies nausea or vomiting. She has not had a bowel movement in 6 days.
Objective Data
-
Vital Signs
Temp Pulse Resp BP Pulse Ox
97.2 F 62 16 168/96 99
10/10/24 07:25 10/10/24 08:27 10/10/24 07:25 10/10/24 08:27 10/10/24 07:25
Intake & Output
10/09/24 10/10/24 10/11/24
06:59 06:59 06:59
Intake Total 1585 / 1585 970 / 970 1080 / 1080
Balance 1585 / 1585 970 / 970 1080 / 1080
Intake:
Oral fluids 660 / 660 120 / 120 1080 / 1080
IV fluids (Total) 825 / 825 750 / 750
IV piggybacks 100 / 100 100 / 100
Other:
Number of approximated MODERATE 2 3
amounts of urine
Number of approximated LARGE 1
amounts of urine
Lab Results
10/10/24 06:59
10/10/24 06:59
Physical Exam
-
General: No Acute Distress and AOx3
Abdomen: Soft, Non Distended and Tender (Right lower quadrant, mild)
Skin: Warm and Dry
[2024-10-10 11:01] VITALS: BP 106/75
[2024-10-10 11:56] LABS: Glucose - Point of Care 103 mg/dl (70-99)
[2024-10-10] MEDS: MILK OF MAGNESIA 30 ML PO (12:00)
[2024-10-10] MEDS: NORCO 5/325 1 TABLET PO ×2 (14:29→18:37)
[2024-10-10] MEDS: KCL 20 MEQ PO (14:29)
--- NOTE | 2024-10-10 14:38 | W.PN.HOSP.TC ---
Today's Communication/Plan
-
see bold
Assessment / Plan
Assessment / Plan
HPI: 64 years old female presented with lower abdominal pain
Assessment/plan:
#Acute sigmoid diverticulitis with evidence of microperforation
Localized infection, not sepsis
Appreciate colorectal surgery input, improving with medical management
Tolerating clear liquids, okay to advance to full's as per colorectal surgery
Continue IV Zosyn, trend fever and white count
#Constipation
Resolved status post magnesium citrate, with BM on 10/10
#History of paroxysmal atrial fibrillation, currently in sinus rhythm
Continue with sotalol
Holding Xarelto per colorectal surgery
#Essential hypertension
Controlled on lisinopril 20 mg twice a day
#History of depression
Continue Effexor, trazodone, Wellbutrin
# Diabetes
Will hold metformin, continue with insulin sliding scale
# Obesity, BMI 44, currently or Mounjaro
# Hyponatremia
Resolved
#Hypokalemia
Continue to replete, check Mg
#DVT prophylaxis - SQ heparin while Xarelto on hold
Full code
Total time spent to see the patient on the floor, examine the patient, review data and lab results, discuss treatment plan with patient, nursing staff around 40 minutes.
Physical Exam
General: Morbidly obese, no acute distress
HEENT: Normocephalic, Atraumatic, EOMI, MMM
Respiratory: Clear to Auscultation bilaterally
Cardiac: Normal S1/S2, Regular Rate and Rhythm
GI: Soft, tender at the right lower quadrant, Nondistended, Normal Bowel Sounds
Extremities: No Clubbing, Cyanosis, or Edema
Neuro: Nonfocal/Grossly Intact
Psych: Calm, Cooperative
Anticipated Discharge: 24 - 48 hours
Subjective/Interval History
-
Date of Service: October 10, 2024
Patient reports feeling better after having her bowel movement. She did have some abdominal cramping with straining. It has since improved. Denies nausea, vomiting. No fever. No chest pain, no shortness of breath.
Objective Data
-
Labs:
Laboratory Results
10/10/24
06:59
WBC 7.7
Hgb 12.2
Hct 36.1 L
Plt Count 221
Sodium 141
Potassium 3.4 L
Chloride 101
Carbon Dioxide 32 H
BUN 7
Creatinine 0.8
Glucose 84
Calcium 8.9
Vital Signs:
Vital Signs
Temp Pulse Resp BP Pulse Ox
97.2 F 62 16 168/96 99
10/10/24 07:25 10/10/24 08:27 10/10/24 07:25 10/10/24 08:27 10/10/24 07:25
I&O
10/09/24 10/10/24 10/11/24
06:59 06:59 06:59
Intake Total 1585 / 1585 970 / 970 1080 / 1080
Balance 1585 / 1585 970 / 970 1080 / 1080
--- NOTE | 2024-10-10 14:39 | CM ---
Met pt chairside,chart reviewed. continues on IV abx. Pt expects to be d/c to home with no need.
Plan: Home with no needs
[2024-10-10 15:18] VITALS: BP 156/87
[2024-10-10 16:46] LABS: Glucose - Point of Care 87 mg/dl (70-99)
[2024-10-10] MEDS: CRESTOR 10 MG PO (17:55)
[2024-10-10 19:18] VITALS: BP 114/88
[2024-10-10] MEDS: DESYREL 50 MG PO (21:16)
[2024-10-10 21:19] LABS: Glucose - Point of Care 93 mg/dl (70-99)
[2024-10-10 23:28] VITALS: BP 143/93
[2024-10-11] MEDS: ZOSYN 50 IV ×3 (00:05→13:34)
[2024-10-11 03:00] VITALS: BP 159/58
[2024-10-11 03:11] LABS: Glucose - Point of Care 76 mg/dl (70-99)
[2024-10-11 07:00] VITALS: BP 164/87
[2024-10-11 07:27] LABS: Hematocrit 35.6 % (37.0-47.0); Hemoglobin 12.0 g/dL (12.0-16.0); Mean Corp Hgb Conc. 33.7 g/dL (33.0-37.0); Mean Corpuscular Volume 84.0 fL (81.0-99.0); Platelet Count 237 10^3/uL (130-400); Red Cell Dist. Width 12.6 % (11.5-14.5)
[2024-10-11 07:36] LABS: Blood Urea Nitrogen 3 mg/dl (7-17); Calcium 9.2 mg/dl (8.4-10.2); Carbon Dioxide 34 mmol/L (22-30); Chloride 101 mmol/L (98-107); Estimated Creatinine Clearance 94 ml/min; Glucose 94 mg/dl (70-99); Magnesium 2.3 mg/dl (1.6-2.3); Potassium 3.0 mmol/L (3.5-5.1); Sodium 141 mmol/L (135-145); eGFR > 60.00
[2024-10-11 07:45] LABS: Glucose - Point of Care 111 mg/dl (70-99)
[2024-10-11] MEDS: HEPARIN 5000 UNITS SC (08:39)
[2024-10-11] MEDS: EFFEXOR XR 37.5 MG PO (08:40)
[2024-10-11] MEDS: EFFEXOR XR 75 MG PO (08:40)
[2024-10-11] MEDS: WELLBUTRIN XL (24 hour extended release) 300 MG PO (08:40)
[2024-10-11] MEDS: BETAPACE 120 MG PO (08:40)
[2024-10-11] MEDS: ZESTRIL 20 MG PO (08:40)
[2024-10-11] MEDS: PROTONIX 40 MG PO (08:40)
[2024-10-11] MEDS: KCL 10 MEQ PO (08:40)
[2024-10-11] MEDS: ORETIC 12.5 MG PO (08:41)
--- NOTE | 2024-10-11 08:49 | W.PN.HOSP.TC ---
Today's Communication/Plan
-
Replete potassium
Discharge today if tolerating solids
Assessment / Plan
Assessment / Plan
HPI: 64 years old female presented with lower abdominal pain
Assessment/plan:
#Acute sigmoid diverticulitis with evidence of microperforation
Localized infection, not sepsis
Appreciate colorectal surgery input, improving with medical management
Tolerating full liquids, advance to solids today as per colorectal surgery
Discharge home if tolerating solids
Continue IV Zosyn while in the hospital, will discharge on Augmentin to complete a 10-day course
Follow-up with PCP in 1 week, colorectal surgery in the office in 2-4 weeks
#Constipation
Resolved status post magnesium citrate, with BM on 10/10
Will discharge her on MiraLAX
#History of paroxysmal atrial fibrillation, currently in sinus rhythm
Continue with sotalol
Holding Xarelto per colorectal surgery
#Essential hypertension
Controlled on lisinopril 20 mg twice a day
#History of depression
Continue Effexor, trazodone, Wellbutrin
# Diabetes
Resume Mounjaro upon discharge
# Obesity, BMI 44, currently or Mounjaro
# Hyponatremia
Resolved
#Hypokalemia
Continue to replete, magnesium normal
#DVT prophylaxis -resume Xarelto
Full code
Physical Exam
General: Morbidly obese, no acute distress
HEENT: Normocephalic, Atraumatic, EOMI, MMM
Respiratory: Clear to Auscultation bilaterally
Cardiac: Normal S1/S2, Regular Rate and Rhythm
GI: Soft, tender at the right lower quadrant, Nondistended, Normal Bowel Sounds
Extremities: No Clubbing, Cyanosis, or Edema
Neuro: Nonfocal/Grossly Intact
Psych: Calm, Cooperative
Anticipated Discharge: Today
Subjective/Interval History
-
Date of Service: October 11, 2024
Patient reports her abdominal pain has resolved. She tolerated her full liquid diet. She has had multiple bowel movements. No chest pain, no shortness of breath. No fever, no vomiting.
Objective Data
-
Labs:
Laboratory Results
10/11/24
06:09
WBC 7.7
Hgb 12.0
Hct 35.6 L
Plt Count 237
Sodium 141
Potassium 3.0 L
Chloride 101
Carbon Dioxide 34 H
BUN 3 L
Creatinine 0.7
Glucose 94
Calcium 9.2
Vital Signs:
Vital Signs
Temp Pulse Resp BP Pulse Ox
97.5 F 60 16 164/87 99
10/11/24 07:00 10/11/24 08:40 10/11/24 07:00 10/11/24 08:40 10/11/24 07:00
I&O
10/10/24 10/11/24 10/12/24
06:59 06:59 06:59
Intake Total 970 / 970 1610 / 1610
Balance 970 / 970 1610 / 1610
[2024-10-11] MEDS: KCL 40 MEQ PO ×2 (09:31→15:10)
--- NOTE | 2024-10-11 10:44 | W.PN.CRS1 ---
Today's Communication / Plan
-
Low residue diet
Finish course of oral antibiotics
Follow-up as an outpatient
Okay to restart anticoagulation
Assessment/Plan
-
64 yo female with h/o AF on Xarelto (last given on 10/07/24) who presents with recurrent diverticulitis with CT demonstrating acute sigmoid diverticulitis with microperforation without abscess.
WBC 7.7. Vitals normal.
Plan:
-Advance diet to low residue.
-Continue IV Zosyn. Finish course of oral antibiotics as an outpatient.
-Produce a bowel movement after milk of magnesia yesterday.
-Stop senna, okay for daily miralax.
-SCDs and Heparin sQ for VTE ppx
-Okay for discharge later today. Okay to resume anticoagulation from our perspective. She can follow-up in the office with Dr. Multani as an outpatient.
Subjective Data
Subjective Data
Date of Service: October 11, 2024
Patient states she is feeling much better. She tolerate a full liquid diet. She did have a bowel movement yesterday. She is hungry. Denies nausea or vomiting. Pain is overall improved.
Objective Data
-
Vital Signs
Temp Pulse Resp BP Pulse Ox
97.5 F 60 16 164/87 99
10/11/24 07:00 10/11/24 08:40 10/11/24 07:00 10/11/24 08:40 10/11/24 07:00
Intake & Output
10/10/24 10/11/24 10/12/24
06:59 06:59 06:59
Intake Total 970 / 970 1610 / 1610
Balance 970 / 970 1610 / 1610
Intake:
Oral fluids 120 / 120 1560 / 1560
IV fluids (Total) 750 / 750
IV piggybacks 100 / 100 50 / 50
Other:
Number of approximated MODERATE 3 2
amounts of urine
Number of approximated LARGE 1
amounts of urine
Lab Results
10/11/24 06:09
10/11/24 06:09
Physical Exam
-
General: No Acute Distress and AOx3
Abdomen: Soft, Non Distended and Non Tender
Skin: Warm and Dry
[2024-10-11] MEDS: MIRALAX 17 GRAMS PO (10:56)
[2024-10-11 11:20] VITALS: BP 129/91
[2024-10-11 11:28] LABS: Glucose - Point of Care 138 mg/dl (70-99)
--- NOTE | 2024-10-11 11:40 | CM ---
Chart was reviewed. Met with pt at chairside. Awaiting result of tolerating advanced diet and improvement in K+ level. Possible late discharge today.Will go home with son when discharged.
Plan: Home with no needs
[2024-10-11 13:01] LABS: Potassium 3.6 mmol/L (3.5-5.1)
--- NOTE | 2024-10-11 13:26 | W.DCSUMMARY ---
Discharge Summary
Discharge Data
Date of Admission: 10/07/24
Date of Discharge: 10/11/24
-
Pending Results: No
Hospital Course
Discharge diagnosis:
Acute sigmoid diverticulitis with microperforation
Constipation
Hypokalemia
Hyponatremia
History of paroxysmal atrial fibrillation, currently in sinus rhythm
Essential hypertension
History of depression
Diabetes
Obesity due to excess calories
Consults: Colorectal surgery
CT abdomen and pelvis:
CT findings are most suspicious for an acute sigmoid diverticulitis. A few tiny foci of extraluminal free air in the adjacent soft tissues raise concern for microperforation.
Repeat CT abdomen and pelvis:
There is persistent sigmoid diverticulitis with increased adjacent phlegmonous changes, however no drainable fluid collection. There previously seen small foci of extraluminal gas are no longer identified.
Hospital course:
64-year-old female with a past medical history of constipation, depression, diabetes, and atrial fibrillation on Xarelto was admitted for acute sigmoid diverticulitis with microperforation. Patient was seen in conjunction with colorectal surgery.
She received conservative management with IV Zosyn, bowel rest, and pain control. She had a repeat abdominal CAT scan 3 days after admission, which no longer showed foci of extraluminal gas. She was started on a diet, and tolerated a low residue
diet.
Patient had constipation, this resolved with magnesium citrate and laxatives.
She also had hypokalemia. This was repleted and resolved.
Patient is medically stable and cleared by colorectal surgery for discharge. She will be discharged on Augmentin to complete a 10-day course. She needs to follow-up with her PCP in 1 week, as well as colorectal surgery in the office in 2-4 weeks.
Disposition: Home self-care
Discharge planning: Required 38 minutes
Discharge Plan
-
Patient Disposition: Home (Routine Discharge)
Discharge Diagnosis/Procedures: Acute sigmoid diverticulitis with microperforation, constipation, hypokalemia/low potassium
Condition: Good
Diet: Low Fiber and Diabetic, Carb Controlled
Activity: As tolerated
Driving Restrictions: As prior to admission
Activity Restrictions/Additional Instructions:
You may take Tylenol/acetaminophen, 1000 mg 3 times a day as needed for pain.
Your repeat potassium was normal on the day of discharge. You do not need to get blood work with your primary care provider.
You can resume your potassium chloride supplements tomorrow, 10/12/2024, since you received potassium chloride while in the hospital on 10/11/2024.
Follow-up with your primary care provider in 1 week, and colorectal surgery in 2-4 weeks.
Referrals:
Mauricio Multani MD [Active, ColoRectal] - in two to four weeks
Bertha Peoples MD [Family Provider] - in one week
Prescriptions:
New
acetaminophen [Tylenol Extra Strength] 500 mg Tablet
1,000 mg PO TIDPRN PRN (Reason: mild pain) Qty: 0 0RF
amoxicillin-pot clavulanate 875-125 mg tablet
1 tab PO BID 6 Days Qty: 12 0RF
polyethylene glycol 3350 17 gram/dose powder
17 g PO DAILY Qty: 510 0RF
Continued
Xarelto 20 MG tablet
20 mg PO QPM
sotalol 120 MG tablet
120 mg PO BID Qty: 60 11RF
venlafaxine [Effexor XR] 37.5 mg Capsule,Extended Release 24hr
37.5 mg PO DAILY
venlafaxine [Effexor XR] 75 mg Capsule,Extended Release 24hr
75 mg PO DAILY
trazodone 50 mg Tablet
50 - 100 mg PO HSPRN PRN (Reason: SLEEP)
lisinopril-hydrochlorothiazide 20-12.5 mg Tablet
1 tab PO BID
Fleet Enema 19-7 gram/118 mL Enema
118 ml [place] DAILYPRN PRN (Reason: CONSTIPATION)
magnesium citrate Solution
150 ml PO DAILYPRN PRN (Reason: CONSTIPATION)
rosuvastatin [Crestor] 10 mg Tablet
10 mg PO QPM
bupropion HCl [Wellbutrin XL] 300 mg Tablet Extended Release 24 Hr
300 mg PO DAILY
cholecalciferol (vitamin D3) [Vitamin D3] 25 mcg (1,000 unit) Tablet
25 mcg PO DAILY
Mounjaro 15 mg/0.5 mL Pen Injector
15 mg SC MO
pantoprazole [Protonix] 40 mg tablet,delayed release (DR/EC)
40 mg PO DAILY
Held
potassium chloride 10 mEq Capsule, Extended Release
10 meq PO BID
Hold Instructions: Resume on 10/12/24.
Discontinued
oxycodone-acetaminophen 5-325 mg Tablet
1 tab PO Q8HPRN PRN (Reason: SEVERE PAIN)
Discharge Orders:
Discharge Patient (As Directed); Ordered 10/11/24
Ordered By: Boogie Sheikh
Discharge Date and Time
Print Language: [place]
[2024-10-11 14:42] VITALS: BP 157/100
--- NOTE | 2024-10-11 15:51 | PTCARENOTE ---
patient discharged to home, accompanied by . IV removed. Tele removed. Last dose IV antibiotics and PO potassium administered. Patient wheeled down to lobby for discharge.
== END 2024-10-11 16:04 | disposition home or self-care (01) | DRG 392 ==
LOC: 4 WEST ACU 11:09
PROVIDERS: Physician Assistant Medical; Registered Nurse; ADMITTING PHYSICIAN Internal Medicine; ATTENDING PHYSICIAN Family Medicine; CONSULT PHYSICIAN Surgery; EMERGENCY PHYSICIAN Emergency Medicine; FAMILY PHYSICIAN Family Medicine
DX: K57.20 Diverticulitis of large intestine with perforation and abscess without bleeding (principal); Z68.41 Body mass index [BMI] 40.0-44.9, adult; E87.1 Hypo-osmolality and hyponatremia; I48.0 Paroxysmal atrial fibrillation; I10 Essential (primary) hypertension; F32.A Depression, unspecified; E11.9 Type 2 diabetes mellitus without complications; E66.01 Morbid (severe) obesity due to excess calories; E87.6 Hypokalemia; K59.09 Other constipation; Z79.4 Long term (current) use of insulin; Z79.01 Long term (current) use of anticoagulants; Z79.899 Other long term (current) drug therapy; Z79.84 Long term (current) use of oral hypoglycemic drugs
CPT/HCPCS: 74177; 80048; 80053; 81003; 81015; 82962; 83036; 83690; 83735; 84100; 84132; 85025; 85027; 85610; 85730; 86140; 86850; 86900; 86901; 87086; 96365; 96375; 96376; 99285; Q9967